=== PATIENT | male | born 1985 | race Caucasian/White ===

== ENCOUNTER 2022-05-31 16:11 | Emergency (ER) | payer MEDICAID, SELFPAY ==
--- NOTE | ~2022-05-31 | CT_ITS ---
EXAMINATION: CT ABDOMEN AND PELVIS WITHOUT CONTRAST CLINICAL INFORMATION: Right flank pain COMPARISON: None available. TECHNIQUE: Multidetector volumetric imaging was performed from the superior aspect of the liver through the pubic symphysis. Sagittal and coronal reformatted images were obtained on the technologist's workstation. This CT examination was performed using dose optimization techniques as appropriate, variously including the following: *Automated exposure control *Adjustment of mA and/or kV according to patient size (this includes techniques or standardized protocols for targeted exams where dose is matched to indication/reason for exam; i.e. extremities or head) *Use of iterative reconstruction technique DLP: 616 mGy-cm FINDINGS: LUNG BASES: The visualized lung bases are unremarkable. LIVER, GALLBLADDER, AND BILIARY TREE: Changes of diffuse hepatic steatosis. No focal lesion grossly. No biliary ductal dilatation. Sludge within the gallbladder lumen without acute inflammatory changes. PANCREAS: Unremarkable. SPLEEN: Mildly prominent 13.5 cm. ADRENAL GLANDS: Unremarkable. KIDNEYS AND URETERS: The kidneys are normal in size, shape, and attenuation. No hydronephrosis, hydroureter, or calculi seen. No perinephric stranding. BLADDER: Unremarkable. GASTROINTESTINAL TRACT: The small and large bowel are unremarkable. The appendix is unremarkable. ABDOMINAL WALL: No significant hernia is appreciated. LYMPH NODES: Normal. VASCULAR: Unremarkable. PELVIC VISCERA: Unremarkable. OSSEOUS STRUCTURES: Unremarkable. CT/CT abdomen pelvis wo IV con IMPRESSION: No stones or obstructive uropathy. Normal appendix. Incidental findings as above. Fleischner guidelines were followed.
[2022-05-31 16:36] VITALS: BP 144/92; PULSE 98; RESP 18; O2SAT 98; BMI 28.0
--- NOTE | 2022-05-31 16:36 | ED_ITS ---
HPI - General Adult General Chief complaint: Urogenital-Male <EDINSON Downs - Last Filed: 05/31/22 16:40> Stated complaint: lower back pain/ fever <EDINSON Downs - Last Filed: 05/31/22 16:40> Time Seen by Provider: 05/31/22 20:32 <EDINSON Downs - Last Filed: 05/31/22 16:40> Source: patient <Rozina Castillo MD - Last Filed: 06/01/22 00:22> Mode of arrival: ambulatory <Rozina Castillo MD - Last Filed: 06/01/22 00:22> History of Present Illness HPI narrative: 37-year-old male that denies any past medical history and denies any use of prescription medications presents for feeling unwell, with fatigue, fevers and chills as well as onset left lower quadrant/flank pain as well as sternal pain and denies any sore throat, ear pain, nausea, vomiting, diarrhea. Patient denies any illicit drug use, smokes weed on occasion and drinks alcohol socially, the last time was on Monday with 3 beers. He denies any recent travel outside of the [facility] or outside of the country. <Rozina Castillo MD - Last Filed: 06/01/22 00:22> Related Data Allergies/adverse reactions: Allergies Allergy/AdvReac Type Severity Reaction Status Date / Time No Known Allergies Allergy Unverified 11/07/19 18:50 <EDINSON Downs - Last Filed: 05/31/22 16:40> Review of Systems Review of Systems: Pertinent positives and negatives as stated in HPI <Rozina Castillo MD - Last Filed: 06/01/22 00:22> PMFSH Past Medical History Source: nursing notes reviewed <Rozina Castillo MD - Last Filed: 06/01/22 00:22> Social History Social History: Social History Advance Directives: No Advance Directives Information Provided: Yes <EDINSON Downs - Last Filed: 05/31/22 16:40> Physical Exam ED Vital Signs: Vital Signs - 24 hr 05/31/22 16:36 05/31/22 21:48 Temperature 98.3 F Pulse Rate 98 72 Respiratory Rate 18 18 Blood Pressure 144/92 H 115/64 Pulse Oximetry 98 95 Oxygen Delivery Method Room Air Room Air BMI result Body Mass Index 28.0 <EDINSON Downs - Last Filed: 05/31/22 16:40> Vital Signs - 24 hr 05/31/22 16:36 05/31/22 21:48 Temperature 98.3 F Pulse Rate 98 72 Respiratory Rate 18 18 Blood Pressure 144/92 H 115/64 Pulse Oximetry 98 95 Oxygen Delivery Method Room Air Room Air BMI result Body Mass Index 28.0 VITAL SIGNS: Reviewed. GENERAL: Well developed, well nourished, in no acute distress. HEAD: Normocephalic/atraumatic EYES: PERRLA, EOMI EARS: Ext canals without abnormality NOSE: Nares patent bilateral OROPHARYNX: no oral lesions noted, posterior pharynx clear NECK: Supple, no adenopathy LUNGS: Normal breath sounds. No adventitious sounds or accessory muscle use. SpO2<98> CARDIOVASCULAR: Regular rate and rhythm without noted murmurs ABDOMEN: Soft, non-tender, non-distended with bowel sounds. BACK: No midline vertebral tenderness, there is no pain on palpation a crossed left paraspinal in to left posterior abdomen. MUSCULOSKELETAL: No tenderness, deformities, or effusions noted on gross inspection. EXTREMITIES: No cyanosis, clubbing or edema. SKIN: Inspection of the skin reveals no rashes NEUROLOGIC: Alert and oriented x 4. Strength and sensation to light touch were grossly intact x 4. <Rozina Castillo MD - Last Filed: 06/01/22 00:22> Course Course Course Narrative: RME--37yo M w/no sig PMHx c/o L low back pain radiating to L foot and LLQ w/subj fever x3 days. Also reports urinary frequency. Denies incontinence or retention, N/V, dysuria/hematuria +L CVAT. abd soft nontender Labs, UA, CTAP ordered <EDINSON Downs - Last Filed: 05/31/22 16:40> Medical Decision Making Medical Decision Making MDM Narrative: 37-year-old male who states that his boss seem to have of viral infection, but patient states that his lower left flank area has been so painful that he has been unable to sleep at night and states that the lower sternal area is quite painful as well. He denies any previous episodes similar events, after review of all investigations at this point I have concerns regarding leukopenia/thrombocytopenia in an otherwise healthy male. Will pursue ESR, CRP, LDH, on review of CT scan of the abdomen/pelvis there is nothing identified for the bony structures. I reviewed all additional workup, there is no evidence of acute elevation of inflammatory markers again I have some concerns regarding the distribution of leukopenia. Patient was provided with combination analgesics and encouraged sick continue with this outpatient. He was also given a referral to follow-up with hematology/oncology by calling the office 1st thing in the morning. <Rozina Castillo MD - Last Filed: 06/01/22 00:22> Differential Diagnosis Please see the discussion above <Rozina Castillo MD - Last Filed: 06/01/22 00:22> Lab Data Please see the discussion above <Rozina Castillo MD - Last Filed: 06/01/22 00:22> Result Diagrams: 05/31/22 17:28 05/31/22 17:28 <EDINSON Downs - Last Filed: 05/31/22 16:40> Labs: Lab Results 05/31/22 05/31/22 05/31/22 Range/Units 17:28 17:28 17:28 WBC 2.4 L (4.8-10.8) X10*3/uL RBC 5.27 (4.60-5.80) X10*6/uL Hgb 15.0 (14.0-18.0) g/dl Hct 43.6 (42.0-52.0) % MCV 82.7 (80.0-98.0) fL MCH 28.5 (27.0-33.0) pg MCHC 34.4 (31.0-36.0) g/dl RDW 12.9 (11.0-16.0) % Plt Count 105 L (160-400) X10*3/uL MPV 8.3 L (9.4-12.4) fL Immature Gran % (Auto) 0.4 (0.0-0.4) % Neut % (Auto) 61.4 (45-73) % Lymph % (Auto) 25.2 (20-40) % [place] % (Auto) 12.6 H (2-11) % Eos % (Auto) 0.0 (0-4) % Baso % (Auto) 0.4 (0-2) % Lymph # (Auto) 0.6 L (1.2-4.9) X10*3/uL [place] # (Auto) 0.3 (0.1-1.2) X10*3/uL Eos # (Auto) 0.0 (0.0-0.4) X10*3/uL Baso # (Auto) 0.0 (0.0-0.2) X10*3/uL Abs Immat Gran (auto) 0.01 (0.00-0.03) X10*3/uL Absolute Neuts (auto) 1.5 L (2.0-8.3) x10*3/uL Absolute Nucleated RBC 0.000 (0.0-0.012) X10*3/uL Nucleated RBC % (auto) 0.0 (0.0-0.2) /100WBC ESR 9 (0-15) MM/HR Sodium 134 L (135-145) mmol/L Potassium 4.3 (3.3-5.1) mmol/L Chloride 99 (96-108) mmol/L Carbon Dioxide 23 (22-29) mmol/L Anion Gap 16 (12-20) BUN 10 (9-16) mg/dL Creatinine 1.31 (0.5-1.4) mg/dL Estim Creat Clear Calc 93.6 Estimated GFR > 60 Random Glucose 90 (60-115) mg/dL Calcium 9.0 (8.4-10.2) mg/dL Total Bilirubin 1.2 H (0.0-1.0) mg/dL Direct Bilirubin 0.4 (0.0-0.5) mg/dL AST 47 H (5-37) U/L ALT 49 H (0-40) U/L Alkaline Phosphatase 88 (39-117) U/L Lactate Dehydrogenase 233 (118-273) U/L C-Reactive Protein 0.47 (< or = 0.50) mg/dL Total Protein 7.4 (6.5-8.0) g/dL Albumin 5.0 (3.5-5.0) g/dL Lipase 24 (8-78) U/L Urine Color Urine Appearance Urine pH (5.0-9.0) Ur Specific [place] (1.005-1.025) Urine Protein (Neg-Trace) mg/dL Urine Glucose (UA) (Negative) mg/dL Urine Ketones (Negative) mg/dL Urine Blood (Negative) Urine Nitrite (Negative) Ur Leukocyte Esterase (Negative) Urine RBC (0-2) /HPF Urine WBC (0-5) /HPF Ur Squamous Epith Cells (0-2) /HPF Urine Bacteria (None Seen) Hyaline Casts (0-2) /LPF Urine Opiates Screen (Not Detect) Urine Fentanyl Screen (Not Detect) Ur Barbiturates Screen (Not Detect) Ur Phencyclidine Scrn (Not Detect) Ur Amphetamines Screen (Not Detect) U Benzodiazepines Scrn (Not Detect) Urine Cocaine Screen (Not Detect) U Marijuana (THC) Screen (Not Detect) Ethyl Alcohol < 10 mg/dL Influenza Type A (PCR) (Negative) Influenza Type B (PCR) (Negative) RSV RNA Qual (PCR) (Negative) SARS-CoV-2 RNA (RT-PCR) (Negative) 05/31/22 05/31/22 05/31/22 Range/Units 21:50 21:50 21:50 WBC (4.8-10.8) X10*3/uL RBC (4.60-5.80) X10*6/uL Hgb (14.0-18.0) g/dl Hct (42.0-52.0) % MCV (80.0-98.0) fL MCH (27.0-33.0) pg MCHC (31.0-36.0) g/dl RDW (11.0-16.0) % Plt Count (160-400) X10*3/uL MPV (9.4-12.4) fL Immature Gran % (Auto) (0.0-0.4) % Neut % (Auto) (45-73) % Lymph % (Auto) (20-40) % [place] % (Auto) (2-11) % Eos % (Auto) (0-4) % Baso % (Auto) (0-2) % Lymph # (Auto) (1.2-4.9) X10*3/uL [place] # (Auto) (0.1-1.2) X10*3/uL Eos # (Auto) (0.0-0.4) X10*3/uL Baso # (Auto) (0.0-0.2) X10*3/uL Abs Immat Gran (auto) (0.00-0.03) X10*3/uL Absolute Neuts (auto) (2.0-8.3) x10*3/uL Absolute Nucleated RBC (0.0-0.012) X10*3/uL Nucleated RBC % (auto) (0.0-0.2) /100WBC ESR (0-15) MM/HR Sodium (135-145) mmol/L Potassium (3.3-5.1) mmol/L Chloride (96-108) mmol/L Carbon Dioxide (22-29) mmol/L Anion Gap (12-20) BUN (9-16) mg/dL Creatinine (0.5-1.4) mg/dL Estim Creat Clear Calc Estimated GFR Random Glucose (60-115) mg/dL Calcium (8.4-10.2) mg/dL Total Bilirubin (0.0-1.0) mg/dL Direct Bilirubin (0.0-0.5) mg/dL AST (5-37) U/L ALT (0-40) U/L Alkaline Phosphatase (39-117) U/L Lactate Dehydrogenase (118-273) U/L C-Reactive Protein (< or = 0.50) mg/dL Total Protein (6.5-8.0) g/dL Albumin (3.5-5.0) g/dL Lipase (8-78) U/L Urine Color Yellow Urine Appearance Clear Urine pH 5.5 (5.0-9.0) Ur Specific [place] 1.010 (1.005-1.025) Urine Protein Negative (Neg-Trace) mg/dL Urine Glucose (UA) Negative (Negative) mg/dL Urine Ketones 15 (Negative) mg/dL Urine Blood Trace H (Negative) Urine Nitrite Negative (Negative) Ur Leukocyte Esterase Negative (Negative) Urine RBC 0-2 (0-2) /HPF Urine WBC 0-5 (0-5) /HPF Ur Squamous Epith Cells 0-2 (0-2) /HPF Urine Bacteria None Seen (None Seen) Hyaline Casts 0-2 (0-2) /LPF Urine Opiates Screen Not Detected (Not Detect) Urine Fentanyl Screen Not Detected (Not Detect) Ur Barbiturates Screen Not Detected (Not Detect) Ur Phencyclidine Scrn Not Detected (Not Detect) Ur Amphetamines Screen Not Detected (Not Detect) U Benzodiazepines Scrn Not Detected (Not Detect) Urine Cocaine Screen Not Detected (Not Detect) U Marijuana (THC) Screen POSITIVE H (Not Detect) Ethyl Alcohol mg/dL Influenza Type A (PCR) NEGATIVE (Negative) Influenza Type B (PCR) NEGATIVE (Negative) RSV RNA Qual (PCR) NEGATIVE (Negative) SARS-CoV-2 RNA (RT-PCR) NEGATIVE (Negative) <EDINSON Downs - Last Filed: 05/31/22 16:40> Lab Results 05/31/22 05/31/22 05/31/22 Range/Units 17:28 17:28 17:28 WBC 2.4 L (4.8-10.8) X10*3/uL RBC 5.27 (4.60-5.80) X10*6/uL Hgb 15.0 (14.0-18.0) g/dl Hct 43.6 (42.0-52.0) % MCV 82.7 (80.0-98.0) fL MCH 28.5 (27.0-33.0) pg MCHC 34.4 (31.0-36.0) g/dl RDW 12.9 (11.0-16.0) % Plt Count 105 L (160-400) X10*3/uL MPV 8.3 L (9.4-12.4) fL Immature Gran % (Auto) 0.4 (0.0-0.4) % Neut % (Auto) 61.4 (45-73) % Lymph % (Auto) 25.2 (20-40) % [place] % (Auto) 12.6 H (2-11) % Eos % (Auto) 0.0 (0-4) % Baso % (Auto) 0.4 (0-2) % Lymph # (Auto) 0.6 L (1.2-4.9) X10*3/uL [place] # (Auto) 0.3 (0.1-1.2) X10*3/uL Eos # (Auto) 0.0 (0.0-0.4) X10*3/uL Baso # (Auto) 0.0 (0.0-0.2) X10*3/uL Abs Immat Gran (auto) 0.01 (0.00-0.03) X10*3/uL Absolute Neuts (auto) 1.5 L (2.0-8.3) x10*3/uL Absolute Nucleated RBC 0.000 (0.0-0.012) X10*3/uL Nucleated RBC % (auto) 0.0 (0.0-0.2) /100WBC ESR 9 (0-15) MM/HR Sodium 134 L (135-145) mmol/L Potassium 4.3 (3.3-5.1) mmol/L Chloride 99 (96-108) mmol/L Carbon Dioxide 23 (22-29) mmol/L Anion Gap 16 (12-20) BUN 10 (9-16) mg/dL Creatinine 1.31 (0.5-1.4) mg/dL Estim Creat Clear Calc 93.6 Estimated GFR > 60 Random Glucose 90 (60-115) mg/dL Calcium 9.0 (8.4-10.2) mg/dL Total Bilirubin 1.2 H (0.0-1.0) mg/dL Direct Bilirubin 0.4 (0.0-0.5) mg/dL AST 47 H (5-37) U/L ALT 49 H (0-40) U/L Alkaline Phosphatase 88 (39-117) U/L Lactate Dehydrogenase 233 (118-273) U/L C-Reactive Protein 0.47 (< or = 0.50) mg/dL Total Protein 7.4 (6.5-8.0) g/dL Albumin 5.0 (3.5-5.0) g/dL Lipase 24 (8-78) U/L Urine Color Urine Appearance Urine pH (5.0-9.0) Ur Specific [place] (1.005-1.025) Urine Protein (Neg-Trace) mg/dL Urine Glucose (UA) (Negative) mg/dL Urine Ketones (Negative) mg/dL Urine Blood (Negative) Urine Nitrite (Negative) Ur Leukocyte Esterase (Negative) Urine RBC (0-2) /HPF Urine WBC (0-5) /HPF Ur Squamous Epith Cells (0-2) /HPF Urine Bacteria (None Seen) Hyaline Casts (0-2) /LPF Urine Opiates Screen (Not Detect) Urine Fentanyl Screen (Not Detect) Ur Barbiturates Screen (Not Detect) Ur Phencyclidine Scrn (Not Detect) Ur Amphetamines Screen (Not Detect) U Benzodiazepines Scrn (Not Detect) Urine Cocaine Screen (Not Detect) U Marijuana (THC) Screen (Not Detect) Ethyl Alcohol < 10 mg/dL Influenza Type A (PCR) (Negative) Influenza Type B (PCR) (Negative) RSV RNA Qual (PCR) (Negative) SARS-CoV-2 RNA (RT-PCR) (Negative) 05/31/22 05/31/22 05/31/22 Range/Units 21:50 21:50 21:50 WBC (4.8-10.8) X10*3/uL RBC (4.60-5.80) X10*6/uL Hgb (14.0-18.0) g/dl Hct (42.0-52.0) % MCV (80.0-98.0) fL MCH (27.0-33.0) pg MCHC (31.0-36.0) g/dl RDW (11.0-16.0) % Plt Count (160-400) X10*3/uL MPV (9.4-12.4) fL Immature Gran % (Auto) (0.0-0.4) % Neut % (Auto) (45-73) % Lymph % (Auto) (20-40) % [place] % (Auto) (2-11) % Eos % (Auto) (0-4) % Baso % (Auto) (0-2) % Lymph # (Auto) (1.2-4.9) X10*3/uL [place] # (Auto) (0.1-1.2) X10*3/uL Eos # (Auto) (0.0-0.4) X10*3/uL Baso # (Auto) (0.0-0.2) X10*3/uL Abs Immat Gran (auto) (0.00-0.03) X10*3/uL Absolute Neuts (auto) (2.0-8.3) x10*3/uL Absolute Nucleated RBC (0.0-0.012) X10*3/uL Nucleated RBC % (auto) (0.0-0.2) /100WBC ESR (0-15) MM/HR Sodium (135-145) mmol/L Potassium (3.3-5.1) mmol/L Chloride (96-108) mmol/L Carbon Dioxide (22-29) mmol/L Anion Gap (12-20) BUN (9-16) mg/dL Creatinine (0.5-1.4) mg/dL Estim Creat Clear Calc Estimated GFR Random Glucose (60-115) mg/dL Calcium (8.4-10.2) mg/dL Total Bilirubin (0.0-1.0) mg/dL Direct Bilirubin (0.0-0.5) mg/dL AST (5-37) U/L ALT (0-40) U/L Alkaline Phosphatase (39-117) U/L Lactate Dehydrogenase (118-273) U/L C-Reactive Protein (< or = 0.50) mg/dL Total Protein (6.5-8.0) g/dL Albumin (3.5-5.0) g/dL Lipase (8-78) U/L Urine Color Yellow Urine Appearance Clear Urine pH 5.5 (5.0-9.0) Ur Specific [place] 1.010 (1.005-1.025) Urine Protein Negative (Neg-Trace) mg/dL Urine Glucose (UA) Negative (Negative) mg/dL Urine Ketones 15 (Negative) mg/dL Urine Blood Trace H (Negative) Urine Nitrite Negative (Negative) Ur Leukocyte Esterase Negative (Negative) Urine RBC 0-2 (0-2) /HPF Urine WBC 0-5 (0-5) /HPF Ur Squamous Epith Cells 0-2 (0-2) /HPF Urine Bacteria None Seen (None Seen) Hyaline Casts 0-2 (0-2) /LPF Urine Opiates Screen Not Detected (Not Detect) Urine Fentanyl Screen Not Detected (Not Detect) Ur Barbiturates Screen Not Detected (Not Detect) Ur Phencyclidine Scrn Not Detected (Not Detect) Ur Amphetamines Screen Not Detected (Not Detect) U Benzodiazepines Scrn Not Detected (Not Detect) Urine Cocaine Screen Not Detected (Not Detect) U Marijuana (THC) Screen POSITIVE H (Not Detect) Ethyl Alcohol mg/dL Influenza Type A (PCR) NEGATIVE (Negative) Influenza Type B (PCR) NEGATIVE (Negative) RSV RNA Qual (PCR) NEGATIVE (Negative) SARS-CoV-2 RNA (RT-PCR) NEGATIVE (Negative) <Rozina Castillo MD - Last Filed: 06/01/22 00:22> Radiology Impression Radiologist Impression: My interpretation is in agreement with radiology's impression of the imaging studies. <Rozina Castillo MD - Last Filed: 06/01/22 00:22> Discharge Plan Discharge Clinical Impression: Viral syndrome, Leukopenia, Thrombocytopenia <EDINSON Downs - Last Filed: 05/31/22 16:40> Patient Disposition: Home, Self-Care <EDINSON Downs - Last Filed: 05/31/22 16:40> Instructions: Viral Syndrome (ED), Thrombocytopenia (ED) <EDINSON Downs - Last Filed: 05/31/22 16:40> Additional Instructions: 1. Please continue with [id number] Tylenol/ibuprofen for your pain, consider [id number] lidocaine patch for additional symptom relief in your back area. 2. Because of the findings on your lab work, I have provided you with a referral to follow-up with our parakeet raiser. You will need to call the office 1st thing in the morning to set up an appointment for re-evaluation. Return to the ER for any worsening of symptoms. <EDINSON Downs - Last Filed: 05/31/22 16:40> Referrals: Michelle Gonzalez MD [Primary Care Provider] - Brit James MD [Physician] - (37M sternal pain, viral-like symptoms, leukopenia as well as thrombocytopenia, LDH and inflammatory markers are unremarkable. Thank you for seeing this patient.) <EDINSON Downs - Last Filed: 05/31/22 16:40>
[2022-05-31 17:31] LABS: MANUAL DIFF FLAG NO
[2022-05-31 17:32] LABS: Basophils Percent Auto 0.4 % (0-2); Hematocrit 43.6 % (42.0-52.0); Imm Gran Abs Auto 0.01 X10*3/uL (0.00-0.03); Imm Gran Pct Auto 0.4 % (0.0-0.4); Lymphocytes Absolute Auto 0.6 X10*3/uL (1.2-4.9); Lymphocytes Percent Auto 25.2 % (20-40); Mean Corpuscular HGB Conc 34.4 g/dl (31.0-36.0); Mean Corpuscular Hemoglobin 28.5 pg (27.0-33.0); Mean Corpuscular Volume 82.7 fL (80.0-98.0); Mean Platelet Volume 8.3 fL (9.4-12.4); Monocytes Absolute Auto 0.3 X10*3/uL (0.1-1.2); Monocytes Percent Auto 12.6 % (2-11); Neutrophils Absolute Auto 1.5 x10*3/uL (2.0-8.3); Neutrophils Percent Auto 61.4 % (45-73); Platelet Count 105 X10*3/uL (160-400); Red Blood Count 5.27 X10*6/uL (4.60-5.80); Red Cell Distribution Width 12.9 % (11.0-16.0); SCAN SMEAR FLAG 1
[2022-05-31 17:55] LABS: Alanine Aminotransferase 49 U/L (0-40); Alkaline Phosphatase 88 U/L (39-117); Anion Gap 16 (12-20); Aspartate Amino Transferase 47 U/L (5-37); Bilirubin Direct 0.4 mg/dL (0.0-0.5); Bilirubin Total 1.2 mg/dL (0.0-1.0); Blood Urea Nitrogen 10 mg/dL (9-16); Carbon Dioxide 23 mmol/L (22-29); Chloride 99 mmol/L (96-108); Creatinine Clr Calc Pharmacy 93.6; Estimated Glomerular Filt Rate > 60; Glucose Random 90 mg/dL (60-115); Lipase 24 U/L (8-78); Potassium 4.3 mmol/L (3.3-5.1); Sodium 134 mmol/L (135-145); Total Protein 7.4 g/dL (6.5-8.0)
[2022-05-31 17:57] LABS: White Blood Count 2.4 X10*3/uL (4.8-10.8)
[2022-05-31 21:12] LABS: Ethanol < 10 mg/dL
[2022-05-31 21:48] VITALS: BP 115/64; PULSE 72; RESP 18; TEMP 36.8; O2SAT 95
[2022-05-31 22:03] LABS: Appearance Urine Clear; Color Urine Yellow; Glucose Urine UA Negative (Negative); Leukocyte Esterase Urine Negative (Negative); Nitrite Urine Negative (Negative); PH 5.5 (5.0-9.0); UMIC TRIGGER UACC YES; Urine Blood Trace (Negative); Urine Ketones 15 mg/dL (Negative); Urine Protein Negative (Neg-Trace)
[2022-05-31 22:19] LABS: Bacteria Urine None Seen (None Seen); Hyaline Casts Urine 0-2 /LPF (0-2); RBC Urine 0-2 /HPF (0-2); Squamous Epithelial Cell Urine 0-2 /HPF (0-2); WBC Urine 0-5 /HPF (0-5)
[2022-05-31 22:47] LABS: Influenza A PCR NEGATIVE (Negative); Influenza B PCR NEGATIVE (Negative); Resp Syncy Virus RNA Qual PCR NEGATIVE (Negative); SARS COV2 PCR INHOUSE NEGATIVE (Negative)
[2022-05-31 22:51] LABS: C Reactive Protein 0.47 mg/dL (< or = 0.50); Lactate Dehydrogenase 233 U/L (118-273)
[2022-05-31 23:15] LABS: Amphetamine Screen Urine Not Detected (Not Detect); Barbiturates, Urine Not Detected (Not Detect); Benzodiazepines Screen Urine Not Detected (Not Detect); Cannabinoid Screen Urine POSITIVE (Not Detect); Cocaine Screen Urine Not Detected (Not Detect); Fentanyl, urine Not Detected (Not Detect); Opiate Screen Urine Not Detected (Not Detect); Phencyclidine Screen Urine Not Detected (Not Detect)
[2022-05-31 23:26] LABS: Erythrocyte Sedimentation Rate 9 MM/HR (0-15)
[2022-06-01 00:42] VITALS: BP 117/71; PULSE 68; RESP 16; TEMP 36.8; O2SAT 95
[2022-06-01] MEDS: Acetaminophen 325 MG TABLET 975 MG PO (00:42)
[2022-06-01] MEDS: Ibuprofen 400 MG TABLET PO (00:42)
== END 2022-06-01 00:49 | disposition home or self-care (01) ==
PROVIDERS: Physician Assistant; Emergency Provider Student in an Organized Health Care Education/Training Program; PCP Internal Medicine
DX: B34.9 Viral infection, unspecified (principal); D69.6 Thrombocytopenia, unspecified; R10.9 Unspecified abdominal pain; M54.50 Low back pain, unspecified; Z20.822 Contact with and (suspected) exposure to COVID-19; Z20.828 Contact with and (suspected) exposure to other viral communicable diseases; Z79.899 Other long term (current) drug therapy
CPT/HCPCS: 0241U; 36415; 74176; 80048; 80076; 80307; 81001; 81003; 82077; 83615; 83690; 85025; 85652; 86140; 99283; 99284

== ENCOUNTER → 2022-07-04 14:07 | Outpatient (BNV) | payer MEDICAID, SELFPAY | PROVIDERS: PCP Internal Medicine; Visit Provider Internal Medicine Medical Oncology | DX: D69.6 Thrombocytopenia, unspecified (principal); D72.818 Other decreased white blood cell count | CPT/HCPCS: 99204; 99213 ==

== ENCOUNTER 2022-07-12 20:45 | Emergency (ER) | payer MEDICAID, SELFPAY ==
[2022-07-12 20:48] VITALS: BP 126/71; PULSE 80; RESP 18; TEMP 36.5; O2SAT 97; BMI 29.4
--- NOTE | 2022-07-12 20:50 | ED_ITS ---
HPI - General Adult General Chief complaint: GI Bleed Stated complaint: blood in stool Time Seen by Provider: 07/13/22 00:42 Source: patient Mode of arrival: ambulatory Limitations: no limitations History of Present Illness HPI narrative: Patient history of hemorrhoids with history of frequent bleeding lately been bleeding more than usual does not have constipation stool is brown no abdominal pain no fever chills no nausea vomiting blood is mostly bright red no clots Related Data Previous Rx's Medication Instructions Recorded docusate sodium 100 mg capsule 100 mg PO BID #14 caps 07/13/22 (Colace) hydrocortisone 1 %-pramoxine 1 % 1 appl TN BID PRN hemorrhoids #10 07/13/22 rectal foam (Proctofoam HC) grams Allergies Allergy/AdvReac Type Severity Reaction Status Date / Time No Known Allergies Allergy Unverified 07/04/22 14:30 Review of Systems Review of Systems: Yes all other systems are reviewed and are negative [facility] Family History Family History Paternal Grandfather Esophageal cancer Social History Social History Household Members: Significant Other and Children Patient Tobacco Use Status: Current everyday Tobacco user Tobacco use type: Cigarette Second Hand Smoke Exposure: No Substance Use Type: Marijuana service: No Current occupational status: employed Physical Exam ED Vital Signs: Vital Signs - 24 hr 07/12/22 20:48 07/12/22 23:45 Temperature 97.7 F 98.1 F Pulse Rate 80 78 Respiratory Rate 18 18 Blood Pressure 126/71 151/59 H Pulse Oximetry 97 98 Oxygen Delivery Method Room Air Room Air BMI result Body Mass Index 29.4 Appearance: Alert. Oriented X3. No acute distress. ENT: Pharynx normal. Oral Mucosa moist Neck: Normal inspection. Neck supple. CVS: Normal heart rate and rhythm. Pulses normal. Respiratory: No respiratory distress. Equal air entry bilateral, no wheezing/rales/rhonchi Abdomen: Soft and nontender. Bowel sounds are present, no mass palpable, no CVA tenderness rectum: Brown stool no blood on the finger palpable internal hemorrhoids Skin: Skin warm and dry. Normal skin color. Normal skin turgor. Extremities: No lower extremity edema. No calf tenderness Neuro: Oriented X 3. No motor deficit. Course Course Course Narrative: RME: 37yo M w/no sig PMHx c/o brbpr intermittently x1 year now with gushing blood and dark red blood in underwear x today. Admits to assoc lightheadedness. denies taking AC. denies rectal pain or abdominal pain at present Labs, UA, Occult stool ordered Full HPI, ROS and PE to be performed by primary ED provider. Medical Decision Making Medical Decision Making MDM Narrative: Patient with likely internal hemorrhoids with intermittent bleed stable H&H advised patient to use Proctofoam HC suppository twice daily and follow up with outpatient with surgeon Lab Data MDM Lab Attestation statement: I reviewed the patient's lab results. 07/12/22 21:33 07/12/22 21:33 Labs: Lab Results 07/12/22 07/12/22 Range/Units 21:33 21:33 WBC 4.9 (4.8-10.8) X10*3/uL RBC 4.37 L (4.60-5.80) X10*6/uL Hgb 12.5 L (14.0-18.0) g/dl Hct 37.0 L (42.0-52.0) % MCV 84.7 (80.0-98.0) fL MCH 28.6 (27.0-33.0) pg MCHC 33.8 (31.0-36.0) g/dl RDW 13.2 (11.0-16.0) % Plt Count 175 (160-400) X10*3/uL MPV 8.1 L (9.4-12.4) fL Immature Gran % (Auto) 0.4 (0.0-0.4) % Neut % (Auto) 60.1 (45-73) % Lymph % (Auto) 27.7 (20-40) % [place] % (Auto) 7.9 (2-11) % Eos % (Auto) 3.5 (0-4) % Baso % (Auto) 0.4 (0-2) % Lymph # (Auto) 1.4 (1.2-4.9) X10*3/uL [place] # (Auto) 0.4 (0.1-1.2) X10*3/uL Eos # (Auto) 0.2 (0.0-0.4) X10*3/uL Baso # (Auto) 0.0 (0.0-0.2) X10*3/uL Abs Immat Gran (auto) 0.02 (0.00-0.03) X10*3/uL Absolute Neuts (auto) 3.0 (2.0-8.3) x10*3/uL Absolute Nucleated RBC 0.000 (0.0-0.012) X10*3/uL Nucleated RBC % (auto) 0.0 (0.0-0.2) /100WBC Sodium 137 (135-145) mmol/L Potassium 3.9 (3.3-5.1) mmol/L Chloride 104 (96-108) mmol/L Carbon Dioxide 26 (22-29) mmol/L Anion Gap 11 L (12-20) BUN 10 (9-16) mg/dL Creatinine 1.15 (0.5-1.4) mg/dL Estim Creat Clear Calc 108.9 Estimated GFR > 60 Random Glucose 98 (60-115) mg/dL Calcium 9.3 (8.4-10.2) mg/dL Total Bilirubin 0.5 (0.0-1.0) mg/dL Direct Bilirubin 0.1 (0.0-0.5) mg/dL AST 17 (5-37) U/L ALT 20 (0-40) U/L Alkaline Phosphatase 65 (39-117) U/L Total Protein 6.6 (6.5-8.0) g/dL Albumin 4.5 (3.5-5.0) g/dL Lipase 27 (8-78) U/L Discharge Plan Discharge Clinical Impression: Internal bleeding hemorrhoids Patient Disposition: Home, Self-Care Instructions: Hemorrhoids (ED) Additional Instructions: Avoid straining or constipation Use suppositories as prescribed twice a day Follow-up with surgeon Prescriptions: New Proctofoam HC 1-1 % foam 1 appl TN BID PRN (Reason: hemorrhoids) Qty: 10 0RF docusate sodium [Colace] 100 mg capsule 100 mg PO BID Qty: 14 0RF Referrals: Mickey Coker MD [Physician] - 2 weeks
[2022-07-12 21:36] LABS: MANUAL DIFF FLAG NO
[2022-07-12 21:38] LABS: Basophils Percent Auto 0.4 % (0-2); Eosinophils Absolute Auto 0.2 X10*3/uL (0.0-0.4); Eosinophils Percent Auto 3.5 % (0-4); Hemoglobin 12.5 g/dl (14.0-18.0); Imm Gran Abs Auto 0.02 X10*3/uL (0.00-0.03); Imm Gran Pct Auto 0.4 % (0.0-0.4); Lymphocytes Absolute Auto 1.4 X10*3/uL (1.2-4.9); Lymphocytes Percent Auto 27.7 % (20-40); Mean Corpuscular HGB Conc 33.8 g/dl (31.0-36.0); Mean Corpuscular Hemoglobin 28.6 pg (27.0-33.0); Mean Corpuscular Volume 84.7 fL (80.0-98.0); Mean Platelet Volume 8.1 fL (9.4-12.4); Monocytes Absolute Auto 0.4 X10*3/uL (0.1-1.2); Monocytes Percent Auto 7.9 % (2-11); Neutrophils Percent Auto 60.1 % (45-73); Platelet Count 175 X10*3/uL (160-400); Red Blood Count 4.37 X10*6/uL (4.60-5.80); Red Cell Distribution Width 13.2 % (11.0-16.0); White Blood Count 4.9 X10*3/uL (4.8-10.8)
[2022-07-12 21:57] LABS: Alanine Aminotransferase 20 U/L (0-40); Albumin Level 4.5 g/dL (3.5-5.0); Alkaline Phosphatase 65 U/L (39-117); Anion Gap 11 (12-20); Aspartate Amino Transferase 17 U/L (5-37); Bilirubin Direct 0.1 mg/dL (0.0-0.5); Bilirubin Total 0.5 mg/dL (0.0-1.0); Blood Urea Nitrogen 10 mg/dL (9-16); Calcium 9.3 mg/dL (8.4-10.2); Carbon Dioxide 26 mmol/L (22-29); Chloride 104 mmol/L (96-108); Creatinine Clr Calc Pharmacy 108.9; Estimated Glomerular Filt Rate > 60; Glucose Random 98 mg/dL (60-115); Lipase 27 U/L (8-78); Potassium 3.9 mmol/L (3.3-5.1); Sodium 137 mmol/L (135-145); Total Protein 6.6 g/dL (6.5-8.0)
[2022-07-12 23:45] VITALS: BP 151/59; PULSE 78; RESP 18; TEMP 36.7; O2SAT 98
--- NOTE | 2022-07-12 23:50 | PC.NURSE ---
On reassessment, pt is awake, alert, and oriented X 4. Skin is warm, pink, and dry. Pt denies any new or changing discomfort or concerns since arriving at ED. No obvious distress noted.
[2022-07-13 02:18] VITALS: BP 113/62; PULSE 72; RESP 16; TEMP 36.9; O2SAT 99
== END 2022-07-13 02:18 | disposition home or self-care (01) ==
PROVIDERS: Physician Assistant; Emergency Provider Internal Medicine; PCP Internal Medicine
DX: K64.8 Other hemorrhoids (principal)
CPT/HCPCS: 36415; 80048; 80076; 83690; 85025; 99282; 99283

== ENCOUNTER → 2022-08-02 10:02 | Outpatient (BNVA) | payer MEDICAID, SELFPAY | PROVIDERS: PCP Internal Medicine; Referring Provider Internal Medicine; Visit Provider Surgery | DX: K64.9 Unspecified hemorrhoids (principal) | CPT/HCPCS: 99202 ==

== ENCOUNTER 2022-08-02 10:38 | Outpatient (REF) | payer MEDICAID, SELFPAY ==
[2022-08-02 13:10] LABS: MANUAL DIFF FLAG NO
[2022-08-02 13:12] LABS: Basophils Percent Auto 0.7 % (0-2); Eosinophils Absolute Auto 0.1 X10*3/uL (0.0-0.4); Eosinophils Percent Auto 3.1 % (0-4); Hematocrit 41.2 % (42.0-52.0); Hemoglobin 13.5 g/dl (14.0-18.0); Imm Gran Abs Auto 0.04 X10*3/uL (0.00-0.03); Imm Gran Pct Auto 0.9 % (0.0-0.4); Lymphocytes Percent Auto 22.7 % (20-40); Mean Corpuscular HGB Conc 32.8 g/dl (31.0-36.0); Mean Corpuscular Hemoglobin 28.5 pg (27.0-33.0); Mean Corpuscular Volume 86.9 fL (80.0-98.0); Mean Platelet Volume 8.6 fL (9.4-12.4); Monocytes Absolute Auto 0.3 X10*3/uL (0.1-1.2); Monocytes Percent Auto 5.9 % (2-11); Neutrophils Absolute Auto 3.1 x10*3/uL (2.0-8.3); Neutrophils Percent Auto 66.7 % (45-73); Platelet Count 207 X10*3/uL (160-400); Red Blood Count 4.74 X10*6/uL (4.60-5.80); Red Cell Distribution Width 13.2 % (11.0-16.0); White Blood Count 4.6 X10*3/uL (4.8-10.8)
[2022-08-02 13:37] LABS: Alanine Aminotransferase 69 U/L (0-40); Albumin Level 4.6 g/dL (3.5-5.0); Alkaline Phosphatase 68 U/L (39-117); Anion Gap 15 (12-20); Aspartate Amino Transferase 37 U/L (5-37); Bilirubin Total 0.4 mg/dL (0.0-1.0); Blood Urea Nitrogen 12 mg/dL (9-16); Calcium 9.6 mg/dL (8.4-10.2); Carbon Dioxide 26 mmol/L (22-29); Chloride 104 mmol/L (96-108); Cholesterol 249 mg/dL; Estimated Glomerular Filt Rate > 60; Glucose Random 88 mg/dL (60-115); HDL Cholesterol 51 mg/dL; LDL Cholesterol Calculated 177 mg/dl; Potassium 4.6 mmol/L (3.3-5.1); Sodium 140 mmol/L (135-145); Total Protein 7.1 g/dL (6.5-8.0); Triglycerides 106 mg/dL
[2022-08-03 07:53] LABS: HBS Num1 2.11 mIU/mL (0-7.99); HBc Num1 0.06 S/CO (0.00-0.79); HBsAGNum1 0.23 S/CO (0.00-0.99); Hepatitis A Antibody IgM 0.14 Index (0-0.79); Hepatitis B Core Antibody Nonreactive (Nonreactive); Hepatitis B Surface Antigen Negative (Negative); ~HepC Num1 0.05 S/CO (0.00-0.79); ~Hepatitis A Antibody IgM Nonreactive (Nonreactive); ~Hepatitis B Surface Antibody NONREACTIVE (Nonreactive); ~Hepatitis C Antibody Nonreactive (Nonreactive)
== END 2022-08-02 10:39 | disposition home or self-care (01) ==
LOC: HO.10HDL 10:38
PROVIDERS: Visit Provider Internal Medicine
DX: Z00.01 Encounter for general adult medical examination with abnormal findings (principal); K64.9 Unspecified hemorrhoids; D69.6 Thrombocytopenia, unspecified; D72.818 Other decreased white blood cell count; M51.16 Intervertebral disc disorders with radiculopathy, lumbar region; R31.29 Other microscopic hematuria; Z72.0 Tobacco use
CPT/HCPCS: 36415; 80053; 80061; 85025; 86704; 86706; 86709; 86803; 87340

== ENCOUNTER 2022-09-01 05:56 | Day surgery (SDC) | payer MEDICAID, SELFPAY ==
[2022-08-29 14:16] VITALS: BMI 29.8
[2022-09-01] MEDS: Lactated Ringers 1,000 ML 100 ML IVCONT (06:12)
[2022-09-01 06:22] VITALS: BP 120/63; PULSE 83; RESP 18; TEMP 36.6; O2SAT 96
--- NOTE | 2022-09-01 07:14 | HO.ANESPROP2 ---
HPI - Anesthesia Eval Consult details Narrative: Hemorerhoidectomy PMFSH Active Problems Active Problems: All Active Problems (Updated 08/29/22 @ 14:14 by Tegan Mora RN) Thrombocytopenia (Acute) Hemorrhoid (Acute) Past Medical History Medical History Hemorrhoids Thrombocytopenia Family History Family History Paternal Grandfather Esophageal cancer Family history of problems with anesthesia: No Surgical History Surgical History Surgical history unknown History of Problems with Anesthesia: No Social History Social History Household Members: Significant Other and Children Patient Tobacco Use Status: Current everyday Tobacco user Tobacco use type: Cigarette Smoked in Last 30 Days: Yes Patient Interested in Nicotine Replacement: No Second Hand Smoke Exposure: No Substance Use Type: Marijuana Substance Use Frequency: Daily Are you DNR?: No Advance Directives: No Advance Directives Information Provided: Yes Nutrition Risks: No Nutritional Risk service: No Current occupational status: employed Meds Allergies Allergy/AdvReac Type Severity Reaction Status Date / Time No Known Allergies Allergy Verified 09/01/22 06:23 Active Medications: Current Medications Lactated Ringer's (Lr) 1,000 mls @ 100 mls/hr IVCONT .Q10H REED Last Admin: 09/01/22 06:12 Dose: 100 mls/hr Exam Exam Date and Time: September 01, 2022 0714 Height,Weight and Vital Signs: Height 6 ft Weight 99.79 kg Last Vital Signs Temp 97.9 F 09/01/22 06:22 Pulse 83 09/01/22 06:22 Resp 18 09/01/22 06:22 BP 120/63 09/01/22 06:22 Pulse Ox 96 09/01/22 06:22 O2 Del Method Room Air 09/01/22 06:22 Airway Mallampati Class: II TM Dist: >3cm Neck ROM: Full Heart: rrr Lungs: cta Assessment and Plan Assessment Anesthesia Assessment: Anesthesia Plan Discussed and Chart Reviewed Final Anesthetic Review Family History of Problems with Anesthesia: No History of Problems with Anesthesia: No NPO: Yes ASA Class: II Patient Risk: Low Procedure Risk: Low Anesthetic Plan Anesthetic Plan: MAC: and Agree w/ Assess. and Plan Disposition: Standard PACU
--- NOTE | 2022-09-01 07:22 | PC.NURSE ---
dr. mathias aware that lcta, but occ. smoker cough noted. okay to proceed.
--- NOTE | 2022-09-01 07:27 | MHC.SHP ---
Pre-Procedural Eval Section A Date of Service: 09/01/22 The patient is an INPATIENT: No Changes since office visit: No Cold of Flu in the past 2 weeks, No New Medical Problems, No Changes in Medication and No Patient answered all questions The History & Physical has been completed within 30 days and I have reviewed it.: Yes Section B Chief Complaint: Unspecified hemorrhoids Allergies: Allergies Allergy/AdvReac Type Severity Reaction Status Date / Time No Known Allergies Allergy Verified 09/01/22 06:23 Plan I have reviewed the history and physical and performed a pertinent physical examination on my patient. No changes have occurred unless specified. Time Spent With Patient Time: Total time managing care of this patient today ____ minutes.
--- NOTE | 2022-09-01 07:57 | W.PM.OPN ---
Operative Note Operative Note Date of Service: 09/01/22 Narrative: Preoperative diagnosis: [] symptomatic internal and external hemorrhoids Postop diagnosis: [] same Procedure [] hemorrhoidectomy Surgeon: [] Siddharth Philosophy Specialist: [] Type of Anesthesia: [] mass Indication for surgery: [] symptomatic hemorrhoids. Patient very large internal-external hemorrhoids at the 3, 7, 11 o'clock position lithotomy. Findings: [] Patient brought to the operating room, placed on the operating room table in the supine position, and after adequate level of MAC anesthesia was induced, the Anorectal area and perineum was prepped and draped in usual sterile fashion. Each hemorrhoidal area was infiltrated with 1% lidocaine/ 0.5% Marcaine. Each was sequentially grasped and transected at their base with double firing of mini ligature device. Specimens sent to pathology. At completion the procedure, wounds irrigated, and secured hemostasis. Gelfoam impregnated with bupivacaine plug followed by dressing were placed. Sponge, needle, and instrument counts reported correct. Patient tolerated procedure well and emerged from anesthesia and stable condition. EBL minimal
[2022-09-01 08:04] VITALS: BP 114/47; PULSE 85; RESP 14; TEMP 36.3; O2SAT 97
[2022-09-01 08:09] VITALS: BP 114/55; PULSE 78; RESP 17; O2SAT 95
[2022-09-01 08:14] VITALS: BP 114/56; PULSE 116; RESP 18; O2SAT 98
[2022-09-01 08:19] VITALS: BP 126/73; PULSE 67; RESP 17; O2SAT 98
[2022-09-01 08:39] VITALS: BP 122/80; PULSE 60; RESP 17; TEMP 36.3; O2SAT 99
== END 2022-09-01 09:06 | disposition home or self-care (01) ==
PROVIDERS: PCP Internal Medicine; Visit Provider Surgery
PROC: (CPT 46260; principal; 2022-09-01 07:30)
DX: K64.8 Other hemorrhoids (principal); K64.4 Residual hemorrhoidal skin tags; D69.6 Thrombocytopenia, unspecified; F17.210 Nicotine dependence, cigarettes, uncomplicated
CPT/HCPCS: 46260; 88304; J0690; J1100; J2250; J2405; J3010

== ENCOUNTER → 2022-09-01 05:56 | Outpatient (BNV) | payer MEDICAID, SELFPAY | PROVIDERS: PCP Internal Medicine; Visit Provider Surgery | DX: K64.9 Unspecified hemorrhoids (principal) | CPT/HCPCS: 46946 ==

== ENCOUNTER 2022-09-09 08:58 | Outpatient (AMB) | payer MEDICAID, SELFPAY ==
[2022-09-09 09:04] VITALS: BP 144/73; PULSE 66; BMI 28.2
--- NOTE | 2022-09-09 09:04 | A.OFFVIS_ITS ---
Intake Vital Signs 09/09/22 09:04 Height 6 ft Weight 208 lb BMI 28.2 BP 144/73 H Blood Pressure Location Rt brachial Position Sitting Pulse 66 Intake Visit Reasons: S/P hemorrhoidectomy Intake Note: Patient here s/p hemorrhoidectomy. Patient reports pain and some bleeding. Luster Applicator Required: No Accompanied by: Self / Same As Patient Allergies No Known Allergies Allergy (Verified 09/09/22 09:06) HPI HPI Comments History of Present Illness Details Status post hemorrhoidectomy. Aside from incisional discomfort, which is improving, patient is doing well. He is tolerating a diet. He is having soft bowel movements. [facility] Medical History Hemorrhoids Thrombocytopenia Surgical History History of hemorrhoidectomy (09/01/22) Surgical history unknown Family History Paternal Grandfather Esophageal cancer Social History Household Members: Significant Other and Children Patient Tobacco Use Status: Current everyday Tobacco user Tobacco use type: Cigarette Second Hand Smoke Exposure: No Substance Use Type: Marijuana service: No Current occupational status: employed Physical Exam Vital Signs: Last Vital Signs Pulse 66 09/09/22 09:04 BP 144/73 H 09/09/22 09:04 BMI result Body Mass Index 28.2 GI Other: Hemorrhoidal wounds clean dry and intact, healing uneventfully. Assessment & Plan Assessment & Plan (1) Hemorrhoid: Code(s): K64.9 - Unspecified hemorrhoids Plan: Patient has been given local wound instructions, and will follow-up ER Coding Level of Care Code Global (48192) Diagnoses Hemorrhoid K64.9
== END 2022-09-09 09:21 | disposition home or self-care (01) ==
PROVIDERS: PCP Internal Medicine; Visit Provider Surgery
DX: K64.9 Unspecified hemorrhoids (principal)
CPT/HCPCS: 99024

== ENCOUNTER → 2022-09-09 08:58 | Outpatient (BNVA) | payer MEDICAID, SELFPAY | PROVIDERS: PCP Internal Medicine; Visit Provider Surgery ==

== ENCOUNTER 2023-02-27 09:15 | Day surgery (SDC) | payer BC, MEDICAID, SELFPAY ==
--- NOTE | 2023-02-24 10:49 | HO.ANESPROP2 ---
HPI - Anesthesia Eval Consult details Narrative: 38yo M for Colonoscopy s/p hemmorhoidectomy 08/2022 with MAC PMFSH Active Problems Active Problems: All Active Problems (Updated 09/11/22 @ 14:57 by Brit James MD) Thrombocytopenia (Acute) Hemorrhoid (Acute) Past Medical History Medical History Hemorrhoids Thrombocytopenia Family History Family History Paternal Grandfather Esophageal cancer Family history of problems with anesthesia: No Surgical History Surgical History History of hemorrhoidectomy (09/01/22) Surgical history unknown History of Problems with Anesthesia: No Social History Social History Household Members: Significant Other and Children Patient Tobacco Use Status: Current everyday Tobacco user Tobacco use type: Cigarette Second Hand Smoke Exposure: No Substance Use Type: Marijuana service: No Current occupational status: employed Meds Allergies Allergy/AdvReac Type Severity Reaction Status Date / Time No Known Allergies Allergy Verified 09/09/22 09:06 Exam Pertinent Lab Results Pertinent Lab Results: Laboratory Tests 09/05/22 14:01 WBC 5.2 Hgb 13.9 L Hct 41.2 L Plt Count 201 Sodium 138 Potassium 4.0 Chloride 104 Carbon Dioxide 25 BUN 12 Creatinine 1.01 Assessment and Plan Assessment Anesthesia Assessment: Chart Reviewed Final Anesthetic Review Family History of Problems with Anesthesia: No History of Problems with Anesthesia: No
[2023-02-27 10:37] VITALS: BMI 28.5
[2023-02-27 10:39] VITALS: BP 114/67; PULSE 55; RESP 16; TEMP 37.1; O2SAT 98
--- NOTE | 2023-02-27 10:43 | HO.ANESPROP2 ---
[facility] Active Problems Active Problems: All Active Problems (Updated 09/11/22 @ 14:57 by Brit James MD) Thrombocytopenia (Acute) Hemorrhoid (Acute) Past Medical History Medical History Thrombocytopenia Hemorrhoids Family History Family History Paternal Grandfather Esophageal cancer Family history of problems with anesthesia: No Surgical History Surgical History History of hemorrhoidectomy (09/01/22) Surgical history unknown History of Problems with Anesthesia: No Social History Social History Household Members: Significant Other and Children Patient Tobacco Use Status: Current everyday Tobacco user Tobacco use type: Cigarette Cigarette Packs Per Day: 0.5 Cigarettes Per Day: 10.0 Smoked in Last 30 Days: Yes Second Hand Smoke Exposure: No Use of substances other than those prescribed or required for medical reasons: Yes Substance Use Type: Marijuana Are you DNR?: No Advance Directives: No Advance Directives Information Provided: Yes service: No Current occupational status: employed Meds Allergies Allergy/AdvReac Type Severity Reaction Status Date / Time No Known Allergies Allergy Verified 09/09/22 09:06 Active Medications: Current Medications Lactated Ringer's (Lr) 1,000 mls @ 100 mls/hr IVCONT .Q10H REED Sodium Biphosphate/Sodium Phosphate (Sodium Phosphate,Steuben-Dibasic 133 Ml Enema) 133 ml NE ONCE PRN PRN Reason: Poor Colonoscopy Prep Results Exam Height,Weight and Vital Signs: Height 6 ft Weight 95.311 kg Airway Mallampati Class: II TM Dist: >3cm Neck ROM: Full Heart: RRR Lungs: CTA Assessment and Plan Assessment Anesthesia Assessment: Anesthesia Plan Discussed and Smoking Cess. Discussed Final Anesthetic Review Family History of Problems with Anesthesia: No History of Problems with Anesthesia: No NPO: Yes ASA Class: II Final Preanesthetic Review: Meds/Allgs Chart Reviewed, Consent Obtained/Reviewed and Anes Risks/Benef Reviewed Patient Risk: Low Procedure Risk: Low Anesthetic Plan Anesthetic Plan: MAC: Disposition: Standard PACU
--- NOTE | 2023-02-27 12:23 | PM.OP ---
Brief Operative Note Date of Service: 02/27/23 Pre-op diagnosis: Rectal bleeding Post-op diagnosis: other (Internal hemorrhoids) Procedure: Colonoscopy to the cecum and TI Surgeon: Romario Salvador MD Anesthesia: MAC Was an Marble Carver used for this Procedure?: No Estimated blood loss (mL): 0 Pathology: none sent Condition: stable Disposition: PACU
[2023-02-27 12:25] VITALS: BP 100/50; PULSE 62; RESP 16; TEMP 36.5; O2SAT 97
[2023-02-27 12:44] VITALS: BP 108/61; PULSE 51; RESP 18; TEMP 36.5; O2SAT 100
--- NOTE | 2023-02-27 12:47 | OP_ITS ---
DATE OF SERVICE: 02/27/2023 SURGEON: Romario Salvador MD INDICATIONS: The patient presents for evaluation of intermittent hematochezia. Full consent has been obtained from him for this, including risks of bleeding and perforation. PREOPERATIVE DIAGNOSIS: Hematochezia. POSTOPERATIVE DIAGNOSIS: PROCEDURE PERFORMED: Colonoscopy to the cecum and terminal ileum. ESTIMATED BLOOD LOSS: COMPLICATIONS: ANESTHESIA: Monitored anesthesia care. ASSISTANTS: SPECIMENS: POSTOPERATIVE DIAGNOSES: Hematochezia, internal hemorrhoids. DESCRIPTION OF PROCEDURE: The patient was placed in the left lateral decubitus position. The digital rectal exam revealed no abnormalities. The Olympus video pediatric colonoscope was entered into the rectum and advanced easily to the cecum. Once in the cecum, I did identify normal-appearing cecal pouch with appendiceal orifice and a normal-appearing ileocecal valve. The terminal ileum was cannulated and appeared normal. Scope withdrawn back in the colon. The entire cecum and ileocecal valve appeared normal. The scope was slowly withdrawn assessing all mucosal surfaces carefully. Preparation was excellent. I did not visualize any sign of polyps, colitis, nor angiodysplasia. In the rectum, scope was retroflexed visualizing small internal hemorrhoids, but no other pathology. The rectal mucosa appeared normal. Scope was straightened and withdrawn from the patient. He tolerated the procedure well and was returned to the recovery area in stable condition. IMPRESSION: Internal hemorrhoids. PLAN: Given today's negative exam, I would recommend a followup coloscopy in 10 years for further screening. At this point, he says he has not had any recent bleeding. He can use p.r.n. medications such as Anusol or preparation-H suppositories on a p.r.n. basis for the internal hemorrhoids if they do become symptomatic. This has been discussed with his . He will otherwise see me on a p.r.n. basis. Romario Salvador MD RMArina/STEVEL / [phone]
== END 2023-02-27 13:05 | disposition home or self-care (01) ==
PROVIDERS: PCP Internal Medicine; Visit Provider Internal Medicine
PROC: 0DJD8ZZ Inspection of Lower Intestinal Tract, Via Natural or Artificial Opening Endoscopic (ICD-10-PCS; CPT 45378; principal; 2023-02-27 10:50)
DX: K62.5 Hemorrhage of anus and rectum (principal); K64.8 Other hemorrhoids; R31.29 Other microscopic hematuria; Z98.890 Other specified postprocedural states; Z86.19 Personal history of other infectious and parasitic diseases; F17.210 Nicotine dependence, cigarettes, uncomplicated
CPT/HCPCS: 45378; J2704

== ENCOUNTER 2023-10-18 07:04 | Outpatient (REF) | payer BC, SELFPAY ==
[2023-10-18 07:18] LABS: MANUAL DIFF FLAG NO
[2023-10-18 08:45] LABS: Basophils Percent Auto 0.6 % (0-2); Eosinophils Absolute Auto 0.3 X10*3/uL (0.0-0.4); Eosinophils Percent Auto 4.8 % (0-4); Hematocrit 39.1 % (42.0-52.0); Imm Gran Abs Auto 0.01 X10*3/uL (0.00-0.03); Imm Gran Pct Auto 0.2 % (0.0-0.4); Lymphocytes Percent Auto 19.2 % (20-40); Mean Corpuscular HGB Conc 33.2 g/dl (31.0-36.0); Mean Corpuscular Hemoglobin 28.8 pg (27.0-33.0); Mean Corpuscular Volume 86.5 fL (80.0-98.0); Mean Platelet Volume 8.8 fL (9.4-12.4); Monocytes Absolute Auto 0.4 X10*3/uL (0.1-1.2); Monocytes Percent Auto 6.7 % (2-11); Neutrophils Absolute Auto 3.6 x10*3/uL (2.0-8.3); Neutrophils Percent Auto 68.5 % (45-73); Platelet Count 207 X10*3/uL (160-400); Red Blood Count 4.52 X10*6/uL (4.60-5.80); Red Cell Distribution Width 13.2 % (11.0-16.0); White Blood Count 5.2 X10*3/uL (4.8-10.8)
[2023-10-18 09:14] LABS: Alanine Aminotransferase 23 U/L (0-40); Albumin Level 4.6 g/dL (3.5-5.0); Alkaline Phosphatase 93 U/L (39-117); Anion Gap 9 (12-20); Aspartate Amino Transferase 31 U/L (5-37); Bilirubin Total 0.4 mg/dL (0.0-1.0); Blood Urea Nitrogen 11 mg/dL (9-16); Calcium 9.2 mg/dL (8.4-10.2); Carbon Dioxide 29 mmol/L (22-29); Chloride 106 mmol/L (96-108); Cholesterol 165 mg/dL (<200); Estimated Glomerular Filt Rate > 60; Glucose Random 85 mg/dL (60-115); HDL Cholesterol 43 mg/dL (>40); LDL Cholesterol Calculated 102 mg/dL (<100); Potassium 4.2 mmol/L (3.3-5.1); Sodium 140 mmol/L (135-145); Total Protein 6.8 g/dL (6.5-8.0); Triglycerides 102 mg/dL (<150)
== END 2023-10-18 07:05 | disposition home or self-care (01) ==
LOC: HO.LAB 07:04
PROVIDERS: PCP Internal Medicine; Visit Provider Internal Medicine
DX: Z00.00 Encounter for general adult medical examination without abnormal findings (principal); D69.6 Thrombocytopenia, unspecified; E78.00 Pure hypercholesterolemia, unspecified; R74.01 Elevation of levels of liver transaminase levels; Z72.0 Tobacco use
CPT/HCPCS: 36415; 80053; 80061; 85025

== ENCOUNTER 2024-09-05 14:50 | Outpatient (AMB) | payer BC, SELFPAY ==
--- NOTE | 2024-09-05 14:59 | A.OFFVIS_ITS ---
Intake Visit Reasons: microscopic hematuria Intake Note: New patient presents today for initial visit for microscopic hematuria Urology Medication:None Blood Thinner:None Antibiotic Allergies:None Allergies No Known Allergies Allergy (Verified 09/05/24 15:02) Medication List - Last Reconciled 09/05/24 by Radha Cannon MD hydrocortisone-pramoxine 1-1 % (Proctofoam HC) 1 appl NC BID PRN HPI Comments Details: Errol is a 39-year-old male here as a new patient for hematuria. He is here with his Yessica. urinalysis today 3+ blood leukocytes negative. Comorbidity nicotine use. I have discussed reasons for blood in the urine may include but are not limited to kidney stones, cancer in the urinary tract, BPH, or inflammatory conditions of the urinary tract. I have discussed workup to include cystoscopy evaluation. History of Present Illness - The patient is a 39-year-old male presenting with hematuria. 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 - The patient has not experienced visible blood in the urine at home. - There is no history of urinary tract infections or kidney stones reported. - There is a history of nicotine use, which is a known risk factor for urinary tract malignancies. Plan--CT urogram, urine for cytology, follow-up office cystoscopy [facility] Medical History Thrombocytopenia Hemorrhoids Surgical History History of hemorrhoidectomy (09/01/22) Surgical history unknown Family History Paternal Grandfather Esophageal cancer Social History Household Members: Significant Other and Children Patient Tobacco Use Status: Current everyday Tobacco user Tobacco use type: Cigarette Cigarette Packs Per Day: 0.5 Cigarettes Per Day: 10.0 Second Hand Smoke Exposure: No Substance Use Type: Marijuana service: No Current occupational status: employed Review of Systems Const All systems reviewed & are unremarkable except as noted in HPI and below Reports no additional complaints Eyes Reports no additional complaints ENT Reports no additional complaints Card Reports no additional complaints Resp Reports no additional complaints GI Reports no additional complaints Reports as per HPI Musc Reports no additional complaints Skin/Breast Reports system reviewed and no additional complaints, except as documented Neuro Reports no additional complaints Psych Reports no additional complaints Endo Reports no additional complaints Jamaal/Lymph Reports no additional complaints Aller/Immun Reports no additional complaints Physical Exam Const General: healthy appearing, no acute distress and well developed Orientation/consciousness: patient oriented x3 HEENT Head: Yes normocephalic and Yes atraumatic Eyes Conjunctivae: conjunctivae normal Neck Neck: Yes normal visual inspection Chest Chest palpation & inspection: normal inspection of the chest Resp Effort & Inspection: normal respiratory effort Cardio Rate: regular rate GI Inspection: Yes normal to inspection Neuro General: patient oriented x3 Psych Appearance: grossly normal Affect: normal affect Assessment & Plan Assessment & Plan (1) Hematuria: Code(s): R31.9 - Hematuria, unspecified Category: Medical (2) Nicotine dependence: Code(s): F17.200 - Nicotine dependence, unspecified, uncomplicated Category: Medical Plan Plan--CT urogram, urine for cytology, follow-up office cystoscopy Orders: Orders Blood Urea Nitrogen Today F17.200 - Nicotine dependence, unspecified, uncomplicated, R31.9 - Hematuria, unspecified CT urogram Today F17.200 - Nicotine dependence, unspecified, uncomplicated, R31.9 - Hematuria, unspecified Creatinine Today F17.200 - Nicotine dependence, unspecified, uncomplicated, R31.9 - Hematuria, unspecified Medications: Discontinued docusate sodium (Colace) Discontinued Reason: Patient Completed Course 100 mg PO BID 14 caps 0RF hydrocodone-acetaminophen 5-325 mg Partial Fill upon patient request. Discontinued Reason: Order 1 tab PO Q4-6H PRN 60 tabs 0RF pain Patient Instructions: The patient had an opportunity to ask questions regarding treatment plan. The patient expressed understanding and agreement with the above treatment plan. The patient is aware they should contact our office by phone for worsening of their current condition or the appearance of new symptoms. Compliance is encouraged with any medications and followup testing that is ordered. It is a privilege to be allowed the opportunity to participate in the urologic care of your patient. If you have any questions or concerns regarding treatment for the above conditions please do not hesitate to contact me. The office telephone contact is [phone]. This note is constructed in part using voice recognition software. While every effort has been made to ensure accuracy canal driver errors may have been included. Yours sincerely, Radha Cannon MD Scribe Plan - Not visible on output: Patient was informed and verbally consented to the use of an ambient scribe for clinic note documentation during this visit. Coding Level of Care Code New Pt Level 4 (42692) Diagnoses Hematuria R31.9 Nicotine dependence F17.200
== END 2024-09-05 15:35 | disposition home or self-care (01) ==
LOC: HO.HUSH 14:51
PROVIDERS: PCP Internal Medicine; Visit Provider Urology
DX: R31.9 Hematuria, unspecified (principal); F17.200 Nicotine dependence, unspecified, uncomplicated; Z13.9 Encounter for screening, unspecified
CPT/HCPCS: 99204

== ENCOUNTER 2024-09-05 14:50 | Outpatient (REF) | payer BC, SELFPAY ==
--- OUTSIDE RECORDS SUMMARY | 2024-09-05 16:12 | XMS_ITS | Data Portability ---
Author Organization [place] - [facility], [address] Address [address] [place] [address] Assessment No assessment recorded. Plan of Treatment Reminders Order Date Submit Date Provider Last Modified By Organization Details Last Modified Time Details Appointments None record ed. Lab None record ed. Referral None record ed. Procedures None record ed. Surgeries None record ed. Imaging None record ed. Medication Orders None record ed. Patient TargetsNo targets recorded. Patient InstructionsNo instructions recorded. Reason for Referral None Reported. Procedures Surgical History Date Name Laterality Status Provider Name and Address Organization Details Recorded Time 3 [facility] completed IRIS COUVERTIER [place] - [facility] 07/06/2022 08:56:47 Imaging Results None recorded. Procedure Notes None recorded. Medical Equipment None Reported. Vitals None Recorded Social History None recorded. Functional Status None recorded. Mental Status None recorded. Family History Nothing Reported. Medical History No medical history recorded. Past Encounters Encounter ID Performer Location Encounter Start Date Encounter Closed Date Diagnosis/Indication Diagnosis SNOMED-CT Code Diagnosis ICD10 Code Diagnosis Note [id number] [facility] [address] [place] [phone] 05/15/2017 16:59:01 05/15/2017 17:45:57 [id number] [address] [place] [phone] 0 05/20/2017 12:53:03 05/20/2017 13:39:46 [id number] [facility] [address] [place] [phone] 04/10/2019 10:40:08 04/10/2019 11:13:59 [id number] [address] [place] [address] 06/02/2019 10:10:00 06/02/2019 10:52:30 [id number] Wilma Barajas MD [address] [place] [address] 07/06/2022 08:50:02 07/06/2022 10:02:05 Unit Leader license medical examination [id number] Z02.4 Physical examination 588 0005 Z02.4 Health Concerns Section Related Observation LastModified by Organization Detai ls LastModified Time None Recorded Concern Status LastModified by Organization Details LastModified Time None Recorded Advance Directives Directive None Recorded Payers Insurance Date Sequence Insurance Name Policy Number Policy Arita Covered Member ID Arita Member ID Guarantor Name 07/06/2022 1 [facility] (O) [id number] Errol Bailey [id number] Errol Bailey 07/06/2022 OC-PAY AT TIME OF SERVICE 2022 Errol Bailey PAY AT TIME OF SERVICE 20 PAY AT TIME OF SERVICE 20 Errol Bailey 07/06/2022 PAY AT TOS Errol Bailey PAY AT TIME OF SERVICE 20 PAY AT TIME OF SERVICE 20 Errol Bailey
[2024-09-05 17:30] LABS: Blood Urea Nitrogen 16 mg/dL (9-16); Estimated Glomerular Filt Rate > 60
== END 2024-09-05 14:51 | disposition home or self-care (01) ==
LOC: HO.LAB 14:50
PROVIDERS: PCP Internal Medicine; Visit Provider Urology
DX: R31.9 Hematuria, unspecified (principal); F17.210 Nicotine dependence, cigarettes, uncomplicated; Z13.89 Encounter for screening for other disorder
CPT/HCPCS: 36415; 81003; 82565; 84520; 88112

== ENCOUNTER 2024-10-31 15:47 | Outpatient (REF) | payer BC, SELFPAY ==
--- NOTE | ~2024-10-31 | CT_ITS ---
EXAMINATION: CT ABDOMEN AND PELVIS WITHOUT AND WITH CONTRAST CLINICAL INFORMATION: R31.9 - Hematuria, unspecified COMPARISON: May 31, 2022 TECHNIQUE: Noncontrast CT of the abdomen and pelvis is performed followed by split bolus contrast-enhanced images using 85 mL Omnipaque 350 contrast. Postcontrast imaging is performed during the combined nephrogram and excretion phase. Sagittal and coronal reformatted images were obtained on the technologist's workstation for both the precontrast and postcontrast phases. This CT examination was performed using dose optimization techniques as appropriate, variously including the following: *Automated exposure control *Adjustment of mA and/or kV according to patient size (this includes techniques or standardized protocols for targeted exams where dose is matched to indication/reason for exam; i.e. extremities or head) *Use of iterative reconstruction technique DLP: 1540 mGy*cm FINDINGS: LUNG BASES: The visualized lung bases are unremarkable. LIVER, GALLBLADDER, AND BILIARY TREE: The liver is normal in size, shape, and attenuation. No focal hepatic lesion or biliary ductal dilatation is present. The gallbladder is unremarkable with no evidence of radiopaque gallstones, gallbladder wall thickening, or obvious pericholecystic inflammatory changes. PANCREAS: Unremarkable. SPLEEN: Unremarkable. ADRENAL GLANDS: Unremarkable. KIDNEYS AND URETERS: Punctate 1 mm calcification is present in the lower pole right kidney likely representing a small stone. There is no hydronephrosis. There is symmetric concentration and excretion of contrast from both kidneys. BLADDER: It is mostly decompressed but grossly unremarkable. GASTROINTESTINAL TRACT: The small and large bowel are unremarkable. The appendix is unremarkable. ABDOMINAL WALL: No significant hernia is appreciated. LYMPH NODES: Shotty right inguinal nodes are present. Likely reactive or hyperplastic. VASCULAR: Unremarkable. PELVIC VISCERA: Unremarkable. OSSEUS STRUCTURES: Unremarkable. CT/CT urogram IMPRESSION: Nonobstructing 1 mm stone is present in the lower pole right kidney. Otherwise, unremarkable urogram. Electronically signed by: Graham Orta MD 10/31/2024 05:22 PM EDT
[2024-10-31] MEDS: iohexoL 350 MG/ML 100 ML INFUS..BTL IV (17:10)
--- OUTSIDE RECORDS SUMMARY | 2024-10-31 18:49 | XMS_ITS | Patient Health Record ---
Author Organization [place] [facility] Address [address] [place] [address] Care Team Providers Care Diesel Engine Fitter Name Role Phone Michelle Gonzalez Primary Care Provider UnavailRomario Downing Unavailable [phone] Allergies No Known Allergies Reason For Referral No Information Medications Medication SIG (Take, Route, Frequency, Duration) Notes Start Date End Date Status Dulcolax (colon prep) 5 MG take at 3:00 p.m and 7:00p.m. Orally two tablets twice a day for one day for 1 day 12/27/2022 Active MiraLax (colon prep) 17 GM/SCOOP 1 238Gm bottle mixed with Gatorade or Crystal Light Orally begin at 5:00 p.m. the day before the procedure for 1 day 12/27/2022 Active Social History Tobacco Use: Social History Observation Description Date Details (start date - stop date) Current Smoker NA - NA Tobacco Use/Smoking Question Answer Notes Patient is a current smoker How often do you smoke cigarettes? every day How many cigarettes a day do you smoke? -30 Alcohol Screen Question Answer Notes Did you have a drink contain ing alcohol in the past year? Yes How often did you have a dri nk containing alcohol in the past year? Monthly or less (1 point) How many drinks did you have on a typical day when you were drinking in the past year? 1 or 2 drinks (0 point) How often did you have 6 or more drinks on one occasion in the past year? Never (0 point) Points 1 Interpretation Negative Section Notes: 1 1/2 packs every 2 days; no sig alcohol Problems Problem Type SNOMED Code ICD Code Onset Dates Problem Status W/U Status Risk Notes Problem [id number] Rectal bleeding (K62.5) Active confirmed Plan Of Treatment Future Test Test Name Order Date COLONOSCOPY 12/27/2022 Insurance Providers Payer Name Payer Address Payer Phone Subscriber Number Group Number Insured Name Patient Relationship to Insured Coverage Start Date Coverage End Date [place] [address] [place] [phone] [id number] ROSALINA DELVALLE Self - patient is the insured Medical (General) History Medical History History ICD Code Denies MO,DM,CVA,Lung disease,renal dise ase Shingles Microscopic hematuria for wh ich he reports he will be seeing a urologist as scheduled by his PCP Surgical History Surgery Date(Month/Year) Hemorrhoidectomy--Dr. Messina 09/01/2022
== END 2024-10-31 15:48 | disposition home or self-care (01) ==
LOC: HO.CT 15:47
PROVIDERS: PCP Internal Medicine; Visit Provider Urology
DX: R31.9 Hematuria, unspecified (principal); F17.200 Nicotine dependence, unspecified, uncomplicated
CPT/HCPCS: 74178; Q9967

== ENCOUNTER → 2024-10-31 15:50 | Outpatient (BNV) | payer BC, SELFPAY | PROVIDERS: PCP Internal Medicine; Visit Provider Radiology Diagnostic Radiology | DX: R31.9 Hematuria, unspecified (principal) | CPT/HCPCS: 74178 ==

== ENCOUNTER 2024-11-14 14:20 | Outpatient (AMB) | payer BC, SELFPAY ==
--- NOTE | 2024-11-14 14:36 | A.OFFVIS_ITS ---
Intake Visit Reasons: Cysto/CT Intake Note: Patient presents today for a cystoscopy/CT * Urogram CT 10/31 Urology Medication:None Blood Thinner:None Antibiotic Allergies:None Lot #:[id number] Exp:07/30/24 Allergies No Known Allergies Allergy (Verified 11/14/24 14:37) Medication List - Last Reconciled 11/14/24 by Radha Cannon MD hydrocortisone-pramoxine 1-1 % (Proctofoam HC) 1 appl [place] BID PRN HPI Comments Details: 11/14/24--Errol is here for office cystoscopy is being evaluated due to microscopic hematuria. Comorbidity nicotine use. He had CT urogram and urine sent for cytology. Cystoscopy findings: prostatic urethra non obstructive, bulbous urethra WNL, no suspicious bladder lesions visualized. History of Present Illness The patient is a 39-year-old male presenting with microscopic hematuria. The hematuria was identified during routine evaluation, and The patient has a history of nicotine use, which is a noted comorbidity in his medical history. 30 minutes spent in review of records pertaining to this visit and including uamd-co-eckz discussion with the patient and documentation of this visit. Results - CT Urogram (10/31/24): Possible 1 mm stone in the lower pole of the right kidney, no concerning masses - Urine cytology (09/05): Negative for malignant cells - UA--proteinuria -Cystoscopy findings: prostatic urethra non obstructive, bulbous urethra WNL, no suspicious bladder lesions visualized Plan 1. Microscopic Hematuria -REID negative for malignancy at this time 2. Possible Nephrolithiasis - Monitor for symptoms of renal colic or stone passage. - Consider follow-up imaging if symptoms develop. 3. Nicotine Use -Discussed the importance of smoking cessation and its benefits on overall health. 4. Proteinuria. Referral to Nephrology 09/05/24--Errol is a 39-year-old male here as a new patient for hematuria. He is here with his Yessica. urinalysis today 3+ blood leukocytes negative. Comorbidity nicotine use. I have discussed reasons for blood in the urine may include but are not limited to kidney stones, cancer in the urinary tract, BPH, or inflammatory conditions of the urinary tract. I have discussed workup to include cystoscopy evaluation. History of Present Illness - The patient is a 39-year-old male presenting with hematuria. 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 - The patient has not experienced visible blood in the urine at home. - There is no history of urinary tract infections or kidney stones reported. - There is a history of nicotine use, which is a known risk factor for urinary tract malignancies. Plan--CT urogram, urine for cytology, follow-up office cystoscopy [facility] Medical History Thrombocytopenia Hemorrhoids Surgical History History of hemorrhoidectomy (09/01/22) Surgical history unknown Family History Paternal Grandfather Esophageal cancer Social History Household Members: Significant Other and Children Patient Tobacco Use Status: Current everyday Tobacco user Tobacco use type: Cigarette Cigarette Packs Per Day: 0.5 Cigarettes Per Day: 10.0 Second Hand Smoke Exposure: No Substance Use Type: Marijuana service: No Current occupational status: employed Review of Systems Const All systems reviewed & are unremarkable except as noted in HPI and below Reports no additional complaints Eyes Reports no additional complaints ENT Reports no additional complaints Card Reports no additional complaints Resp Reports no additional complaints GI Reports no additional complaints Reports as per HPI Musc Reports no additional complaints Skin/Breast Reports system reviewed and no additional complaints, except as documented Neuro Reports no additional complaints Psych Reports no additional complaints Endo Reports no additional complaints Jamaal/Lymph Reports no additional complaints Aller/Immun Reports no additional complaints Office Procedures Cystoscopy Consent Discussed risk and benefit or proposed procedure with the patient. Information consent for procedure given to the patient. Discussed technical aspects, risks, benefits and alternatives in full. Addressed all of the patient's questions and concerns regarding the procedure. The patient demonstrated knowledge and understanding. They wish to proceed with this procedure. Preparation The patient was prepped in the usual manner. A program coordinator executive education was present and in the room. Genitalia was prepped with betadine solution in a sterile manner. Lido noah Jelly 2% was placed into the urethra and 16Fr flexible Olympus cystoscope was inserted into the meatus after adequate lubrication. Procedure Time out per protocol performed. The flexible cystoscope is passed transurethrally: The bladder was inspected in its entirety with utilization retroflexion displaying: Tumor(s): no suspicious bladder lesions visualized Trabeculation: NA Mucosal Erthema: NA Orifices: normal shape and position Urethra: normal Cystoscopy findings: prostatic urethra non obstructive, bulbous urethra WNL, no suspicious bladder lesions visualized [id number]-Lhtpefuldm DISPOSABLE SCOPE URO-G FLEXIBLE SCOPE Procedure code (CPT) selection complete Office Meds lidocaine HCl 2 % mucosal jelly in applicator Performing Provider: Radha Cannon MD Performing Location: [facility] [place] [facility] Administered by: Jose Daniel Graff LPN on 11/14/24 14:51 Dose Route Admin Location Dispensed Lot Number Expiration Date ND [employer] 10 mL intra-urethral 20 mL nitrofurantoin monohydrate/macrocrystals 100 mg capsule Performing Provider: Radha Cannon MD Performing Location: [facility] [place] [facility] Administered by: Jose Daniel Graff LPN on 11/14/24 14:51 Dose Route Admin Location Dispensed Lot Number Expiration Date NDC [employer] 100 mg PO 1 cap phenazopyridine 200 mg tablet Performing Provider: Radha Cannon MD Performing Location: [facility] [place] [facility] Administered by: Jose Daniel Graff LPN on 11/14/24 14:51 Dose Route Admin Location Dispensed Lot Number Expiration Date NDC [employer] 200 mg PO 1 tab Results AMB Urinalysis, Automated UA Leukoctes 0 Marsha/uL Last Edit by Polina Freeman on 11/14/24 17:09 UA Nitrite Negative Last Edit by Polina Freeman on 11/14/24 17:09 UA Urobilinogen 3.5 mg/dL Last Edit by Polina Freeman on 11/14/24 17:09 UA Protein 0.3 mg/dL Last Edit by Polina Freeman on 11/14/24 17:09 UA pH 5.5 Last Edit by Polina Freeman on 11/14/24 17:09 UA Blood 80 Stefan/uL Last Edit by Polina Freeman on 11/14/24 17:09 UA Specific Cecil 1.030 Last Edit by Polina Freeman on 11/14/24 17:09 UA Ketone Positive Last Edit by Polina Freeman on 11/14/24 17:09 UA Bilirubin 0 mg/dL Last Edit by Polina Freeman on 11/14/24 17:09 UA Glucose 0 mg/dL Last Edit by Polina Freeman on 11/14/24 17:09 Results Reviewed Results Reviewed: Laboratory Last Values Urine pH (Auto) 5.5 11/14/24 15:52 Specific Cecil (Auto) 1.030 11/14/24 15:52 Urine Protein (Auto) 0.3 mg/dL 11/14/24 15:52 Glucose (UA)(Auto) 0 mg/dL 11/14/24 15:52 Urine Ketones (Auto) Positive 11/14/24 15:52 Urine Blood (Auto) 80 Stefan/uL 11/14/24 15:52 Urine Nitrite (Auto) Negative 11/14/24 15:52 Urine Bilirubin (Auto) 0 mg/dL 11/14/24 15:52 Urine Urobilinogen (Auto) 3.5 mg/dL 11/14/24 15:52 Leukocyte Esterase (Auto) 0 Marsha/uL 11/14/24 15:52 Urine Cytology--Collected: 09/05/24 Location: .LAB Received: 09/06/24 Diagnosis Urine, cytology: Negative for high-grade urothelial carcinoma. COMMENT: Review of the cytology preparation demonstrates a cellular specimen composed of squames and urothelial cells. Red blood cells identified. There is no significant atypia seen. Clinical History Hematuria Material Received Urine Gross Description Received is 14 cc of cloudy yellow-gonzales fluid from which a ThinPrep slide is prepared. Date of Service: 10/31/24 Reason for Exam: R31.9 - Hematuria, unspecified EXAMINATION: CT ABDOMEN AND PELVIS WITHOUT AND WITH CONTRAST CLINICAL INFORMATION: R31.9 - Hematuria, unspecified COMPARISON: May 31, 2022 TECHNIQUE: Noncontrast CT of the abdomen and pelvis is performed followed by split bolus contrast-enhanced images using 85 mL Omnipaque 350 contrast. Postcontrast imaging is performed during the combined nephrogram and excretion phase. Sagittal and coronal reformatted images were obtained on the technologist's workstation for both the precontrast and postcontrast phases. This CT examination was performed using dose optimization techniques as appropriate, variously including the following: *Automated exposure control *Adjustment of mA and/or kV according to patient size (this includes techniques or standardized protocols for targeted exams where dose is matched to indication/reason for exam; i.e. extremities or head) *Use of iterative reconstruction technique DLP: 1540 mGy*cm FINDINGS: LUNG BASES: The visualized lung bases are unremarkable. LIVER, GALLBLADDER, AND BILIARY TREE: The liver is normal in size, shape, and attenuation. No focal hepatic lesion or biliary ductal dilatation is present. The gallbladder is unremarkable with no evidence of radiopaque gallstones, gallbladder wall thickening, or obvious pericholecystic inflammatory changes. PANCREAS: Unremarkable. SPLEEN: Unremarkable. ADRENAL GLANDS: Unremarkable. KIDNEYS AND URETERS: Punctate 1 mm calcification is present in the lower pole right kidney likely representing a small stone. There is no hydronephrosis. There is symmetric concentration and excretion of contrast from both kidneys. BLADDER: It is mostly decompressed but grossly unremarkable. GASTROINTESTINAL TRACT: The small and large bowel are unremarkable. The appendix is unremarkable. ABDOMINAL WALL: No significant hernia is appreciated. LYMPH NODES: Shotty right inguinal nodes are present. Likely reactive or hyperplastic. VASCULAR: Unremarkable. PELVIC VISCERA: Unremarkable. OSSEUS STRUCTURES: Unremarkable. IMPRESSION: Nonobstructing 1 mm stone is present in the lower pole right kidney. Otherwise, unremarkable urogram. Assessment & Plan Assessment & Plan (1) Proteinuria: Code(s): R80.9 - Proteinuria, unspecified Category: Medical (2) Microscopic hematuria: Code(s): R31.29 - Other microscopic hematuria Category: Medical (3) Nicotine dependence: Code(s): F17.200 - Nicotine dependence, unspecified, uncomplicated Category: Medical (4) Kidney stone: Code(s): N20.0 - Calculus of kidney Category: Medical Plan Plan 1. Microscopic Hematuria -REID negative for malignancy at this time 2. Possible Nephrolithiasis - Monitor for symptoms of renal colic or stone passage. - Consider follow-up imaging if symptoms develop. 3. Nicotine Use Orders: Orders AMB Cystoscopy 11/14/24 R31.9 - Hematuria, unspecified AMB Urinalysis Automated 11/14/24 R31.29 - Other microscopic hematuria, R80.9 - Proteinuria, unspecified, R31.9 - Hematuria, unspecified Referrals Nephrology Referral R80.9 - Proteinuria, unspecified, R31.29 - Other microscopic hematuria Patient Instructions: The patient had an opportunity to ask questions regarding treatment plan. The patient expressed understanding and agreement with the above treatment plan. The patient is aware they should contact our office by phone for worsening of their current condition or the appearance of new symptoms. Compliance is encouraged with any medications and followup testing that is ordered. It is a privilege to be allowed the opportunity to participate in the urologic care of your patient. If you have any questions or concerns regarding treatment for the above conditions please do not hesitate to contact me. The office telephone contact is [phone]. This note is constructed in part using voice recognition software. While every effort has been made to ensure accuracy ware finisher errors may have been included. Yours sincerely, Radha Cannon MD Scribe Plan - Not visible on output: Patient was informed and verbally consented to the use of an ambient scribe for clinic note documentation during this visit. Coding Level of Care Code Est Pt Level 4 (28314) Diagnoses Proteinuria R80.9 Microscopic hematuria R31.29 Nicotine dependence F17.200 Kidney stone N20.0 CPT Codes Cystoscopy - CPT: 39614-Scvaifbwrm ([id number])
--- OUTSIDE RECORDS SUMMARY | 2024-11-14 18:44 | XMS_ITS | Patient Health Record ---
Author Organization [facility] Address [address] [place] [address] Care Team Providers Care Associate Financial Representative Name Role Phone Michelel Gonzalez Primary Care Provider UnavailRomario Downing Unavailable [phone] Allergies No Known Allergies Reason For Referral [...] many cigarettes a day do you smoke? - Alcohol Screen Question Answer Notes Did you [...] Problem Status W/U Status Risk Notes Problem [id number] Rectal bleeding (K62.5) Active confirmed Plan Of Treatment Future Test Test Name Order Date COLONOSCOPY 12/27/2022 Insurance Providers Payer Name Payer Address Payer Phone Subscriber Number Group Number Insured Name Patient Relationship to Insured Coverage Start Date Coverage End Date MEDICAID OF [employer] [address] [place] [phone] [id number] ROSALINA DELVALLE Self - patient is the insured Medical (General) History Medical History History ICD Code Denies IA,DM,CVA,Lung disease,renal dise ase Shingles Microscopic hematuria for wh ich he reports he will be seeing a urologist as scheduled by his PCP Surgical History Surgery Date(Month/Year) Hemorrhoidectomy--Dr. Messina 09/01/2022
== END 2024-11-14 15:46 | disposition home or self-care (01) ==
LOC: HO.HUSH 14:20
PROVIDERS: PCP Internal Medicine; Visit Provider Urology
DX: R31.29 Other microscopic hematuria (principal); R80.9 Proteinuria, unspecified; R31.9 Hematuria, unspecified
CPT/HCPCS: 52000

== ENCOUNTER → 2024-11-14 14:20 | Outpatient (BNVA) | payer BC, SELFPAY | PROVIDERS: PCP Internal Medicine; Visit Provider Urology | DX: N20.0 Calculus of kidney (principal); R31.29 Other microscopic hematuria; R80.9 Proteinuria, unspecified; R31.9 Hematuria, unspecified | CPT/HCPCS: 52000; 81003 ==

== ENCOUNTER 2025-01-03 13:09 | Outpatient (REF) | payer BC, SELFPAY ==
[2025-01-03 14:38] LABS: Anion Gap 13 (12-20); Blood Urea Nitrogen 11 mg/dL (9-16); Calcium 9.8 mg/dL (8.4-10.2); Carbon Dioxide 25 mmol/L (22-29); Chloride 108 mmol/L (96-108); Estimated Glomerular Filt Rate > 60; Potassium 3.8 mmol/L (3.3-5.1); Sodium 142 mmol/L (135-145)
[2025-01-03 14:51] LABS: Appearance Urine Clear; Glucose Urine UA Negative (Negative); PH 5.5 (5.0-9.0); Specific Gravity - Urine 1.015 (1.005-1.025); UMIC TRIGGER UA YES
[2025-01-03 15:30] LABS: Total Protein Urine Random < 7 mg/dL (<12)
== END 2025-01-03 13:10 | disposition home or self-care (01) ==
LOC: HO.LAB 13:09
PROVIDERS: PCP Internal Medicine; Referring Provider Urology; Visit Provider Internal Medicine Hypertension Specialist
DX: N20.0 Calculus of kidney (principal); R31.29 Other microscopic hematuria
CPT/HCPCS: 36415; 80048; 81001; 82570; 84156

== ENCOUNTER 2025-01-03 13:09 | Outpatient (AMB) | payer BC, SELFPAY ==
[2025-01-03 13:15] VITALS: BP 118/66; PULSE 80; O2SAT 99; BMI 27.9
--- NOTE | 2025-01-03 13:15 | HO.NEPHOV ---
Vital Signs 01/03/25 13:15 Height 6 ft Weight 206 lb BMI 27.9 BP 118/66 Blood Pressure Location Lt brachial Position Sitting Pulse 80 Pulse Source Pulse Oximeter Pulse Oximetry (%) 99 Oxygen Delivery Method Room Air Intake Visit Reasons: INP: Proteinuria, Other microscopic hematuria Freight Elevator Erector Required: No Accompanied by: Spouse Allergies No Known Allergies Allergy (Verified 01/03/25 13:17) HPI Comments Details: The patient is a 39-year-old male referred for microscopic hematuria and question proteinuria. . He has a history of trace hematuria noted during physical examinations over several years, with recent findings of proteinuria. An ultrasound revealed a 1 mm calcification in the lower pole of the kidney, identified as a small renal stone. Seen by Urology and underwent cystoscopy which was unremarkable. The patient denies any significant medical history of hypertension or diabetes and is not on any prescription medications. He has a surgical history of hernia and hemorrhoid removal approximately two years ago. The patient reports frequent urination but denies visible hematuria, blood in stools, or leg swelling. He experiences occasional sharp pains that last a few seconds to a minute, occurring sporadically over the past year. The patient has a smoking history of approximately 10-12 years, consuming about half a pack per day, and is attempting to quit. [facility] Medical History Thrombocytopenia Hemorrhoids Surgical History History of hemorrhoidectomy (09/01/22) Surgical history unknown Family History Paternal Grandfather Esophageal cancer Social History Household Members: Significant Other and Children Patient Tobacco Use Status: Current everyday Tobacco user Tobacco use type: Cigarette Cigarette Packs Per Day: 0.5 Cigarettes Per Day: 10.0 Second Hand Smoke Exposure: No Substance Use Type: Marijuana service: No Current occupational status: employed Review of Systems Const Denies fever(s) and Denies weight loss Card Denies chest pain Resp Denies cough and Denies hemoptysis GI Denies abdominal pain, Denies diarrhea and Denies nausea Musc Denies back pain Neuro Denies focal weakness Physical Exam Vital Signs: Last Vital Signs Pulse 80 01/03/25 13:15 BP 118/66 01/03/25 13:15 Pulse Ox 99 01/03/25 13:15 Oxygen Delivery Method Room Air 01/03/25 13:15 BMI result Body Mass Index 27.9 Comfortable Neck supple no JVD. Lungs entry equal no rales. Heart S1-S2 heard no gallop or rub. Abdomen soft nontender. Neuro alert awake oriented. No asterixis. Extremities no edema. Results Reviewed Nephrology Results: Hgb, (14.0-18.0) 13.0 g/dl L 10/18/23 WBC, (4.8-10.8) 5.2 X10*3/uL 10/18/23 Plt Count, (160-400) 207 X10*3/uL 10/18/23 Sodium, (135-145) 140 mmol/L 10/18/23 Potassium, (3.3-5.1) 4.2 mmol/L 10/18/23 Chloride, (96-108) 106 mmol/L 10/18/23 Carbon Dioxide, (22-29) 29 mmol/L 10/18/23 BUN, (9-16) 16 mg/dL 09/05/24 Creatinine, (0.5-1.4) 1.07 mg/dL 09/05/24 Calcium, (8.4-10.2) 9.2 mg/dL 10/18/23 Assessment & Plan Assessment & Plan (1) Kidney stone: Code(s): N20.0 - Calculus of kidney Category: Medical (2) Microscopic hematuria: Code(s): R31.29 - Other microscopic hematuria Category: Medical Plan 1. Nephrolithiasis 1 mm. Asymptomatic. No evidence of obstruction. - Recommend increased fluid intake, reduced salt consumption, and consumption of lemonade to prevent further stone formation. 2. Hematuria Most likely related to underlying nephrolithiasis. However we will rule out other causes. Workup ordered 3. Proteinuria Trace proteinuria noted on dipstick - Plan to conduct urine tests to quantify proteinuria and proceed with workup as indicated At present renal function is normal. Further workup will be based on the outcome of the above baseline investigations Orders: Orders Basic Metabolic Panel Today N20.0 - Calculus of kidney Creatinine Urine Today N20.0 - Calculus of kidney UA and rflx microscopic Today N20.0 - Calculus of kidney Total Protein Urine Random Today N20.0 - Calculus of kidney Coding Level of Care Code New Pt Level 4 (95290) Diagnoses Kidney stone N20.0 Microscopic hematuria R31.29
--- OUTSIDE RECORDS SUMMARY | 2025-01-03 19:22 | XMS_ITS | Data Portability ---
Author Organization [place] - [facility] [address] Address [address] [place] [address] Assessment No assessment recorded. Plan of Treatment [...] Diagnosis SNOMED-CT Code Diagnosis ICD10 Code Diagnosis IMO Codes Diagnosis Note [id number] [facility] [address] [address] [facility] [address] [place] [address] 05/15/2017 16:59:01 05/15/2017 17:45:57 [id number] [address] [address] [place] [address] 05/20/2017 12:53:03 05/20/2017 13:39:46 [id number] [address] [facility] [place] [address] 04/10/2019 10:40:08 04/10/2019 11:13:59 [id number] 20994[facility] [address] [place] [address] 06/02/2019 10:10:00 06/02/2019 10:52:30 [id number] Wilma Barajas MD [address] [place] [address] 07/06/2022 08:50:02 07/06/2022 10:02:05 Foreclosure Field Inspector license medical examination [id number] Z02.4 Physical examination 588 0005 Z02.4 Health Concerns Section Related Observation LastModified by Organization Detai ls LastModified Time None Recorded Concern Status LastModified by Organization Details LastModified Time None Recorded Advance Directives Directive None Recorded Payers Insurance Date Sequence Insurance Name Policy Number Policy Arita Covered Member ID Arita Member ID Guarantor Name 07/06/2022 1 [facility] (O) [id number] Errol Bailey [id number] Errol Bailey 07/06/2022 OC-PAY AT TIME OF SERVICE 2022 Errol Bailey PAY AT TIME OF SERVICE 20 PAY AT TIME OF SERVICE 20 Errol Bailey 07/06/2022 PAY AT TOS Errol Bailey PAY AT TIME OF SERVICE 20 PAY AT TIME OF SERVICE 20 Errol Bailey
== END 2025-01-03 13:29 | disposition home or self-care (01) ==
LOC: HO.HKA 13:10
PROVIDERS: PCP Internal Medicine; Referring Provider Urology; Visit Provider Internal Medicine Hypertension Specialist
DX: N20.0 Calculus of kidney (principal); R31.29 Other microscopic hematuria
CPT/HCPCS: 99204

== ENCOUNTER 2025-01-23 15:04 | Outpatient (AMB) | payer BC, SELFPAY ==
[2025-01-23 15:06] VITALS: BP 118/70; PULSE 80; O2SAT 98; BMI 28.5
--- NOTE | 2025-01-23 15:06 | HO.NEPHOV_ITS ---
Vital Signs 01/23/25 15:06 Height 6 ft Weight 210 lb BMI 28.5 BP 118/70 Blood Pressure Location Lt brachial Position Sitting Pulse 80 Pulse Source Pulse Oximeter Pulse Oximetry (%) 98 Oxygen Delivery Method Room Air Intake Visit Reasons: 3wk f/u Medical Device Sales Required: No Accompanied by: Self / Same As Patient Allergies No Known Allergies Allergy (Verified 01/23/25 15:07) HPI Comments Details: The patient is a 39-year-old male referred for microscopic hematuria and qu estion proteinuria. . He has a history of trace hematuria noted during physical examinations over several years, with recent findings of proteinuria. An ultrasound revealed a 1 mm calcification in the lower pole of the kidney, identified as a small renal stone. Seen by Urology and underwent cystoscopy which was unremarkable. The patient denies any significant medical history of hypertension or diabetes and is not on any prescription medications. He has a surgical history of hernia and hemorrhoid removal approximately two years ago. The patient reports frequent urination but denies visible hematuria, blood in stools, or leg swelling. He experiences occasional sharp pains that last a few seconds to a minute, occurring sporadically over the past year. The patient has a smoking history of approximately 10-12 years, consuming about half a pack per day, and is attempting to quit. 01/23/25 Here for follow up. No gross hematuria. No specific complaint [facility] Medical History Thrombocytopenia Hemorrhoids Surgical History History of hemorrhoidectomy (09/01/22) Surgical history unknown Family History Paternal Grandfather Esophageal cancer Social History Household Members: Significant Other and Children Patient Tobacco Use Status: Current everyday Tobacco user Tobacco use type: Cigarette Cigarette Packs Per Day: 0.5 Cigarettes Per Day: 10.0 Second Hand Smoke Exposure: No Substance Use Type: Marijuana service: No Current occupational status: employed Physical Exam Vital Signs: Last Vital Signs Pulse 80 01/23/25 15:06 BP 118/70 01/23/25 15:06 Pulse Ox 98 01/23/25 15:06 Oxygen Delivery Method Room Air 01/23/25 15:06 BMI result Body Mass Index 28.5 Comfortable Neck supple no JVD. Lungs entry equal no rales. Heart S1-S2 heard no gallop or rub. Abdomen soft nontender. Neuro alert awake oriented. No asterixis. Extremities no edema. Results Reviewed Nephrology Results: Hgb, (14.0-18.0) 13.0 g/dl L 10/18/23 WBC, (4.8-10.8) 5.2 X10*3/uL 10/18/23 Plt Count, (160-400) 207 X10*3/uL 10/18/23 Sodium, (135-145) 142 mmol/L 01/03/25 Potassium, (3.3-5.1) 3.8 mmol/L 01/03/25 Chloride, (96-108) 108 mmol/L 01/03/25 Carbon Dioxide, (22-29) 25 mmol/L 01/03/25 BUN, (9-16) 11 mg/dL 01/03/25 Creatinine, (0.5-1.4) 1.03 mg/dL 01/03/25 Calcium, (8.4-10.2) 9.8 mg/dL Δ 01/03/25 Urine Protein, (Neg-Trace) Negative mg/dL 01/03/25 Urine Creatinine 129.77 mg/dL 01/03/25 Assessment & Plan Assessment & Plan (1) Kidney stone: Code(s): N20.0 - Calculus of kidney Category: Medical (2) Microscopic hematuria: Code(s): R31.29 - Other microscopic hematuria Category: Medical Plan 1. Nephrolithiasis 1 mm. Asymptomatic. No evidence of obstruction. - Recommend increased fluid intake, reduced salt consumption, and consumption of lemonade to prevent further stone formation. 2. Hematuria Most likely related to underlying nephrolithiasis. No significant Proteinuria based on urine protein creatinine ratio Trace proteinuria noted on dipstick has resolved No further testing is needed At present renal function is normal. Coding Level of Care Code Est Pt Level 3 (12368) Diagnoses Kidney stone N20.0 Microscopic hematuria R31.29
== END 2025-01-23 15:14 | disposition home or self-care (01) ==
LOC: HO.HKA 15:05
PROVIDERS: PCP Internal Medicine; Visit Provider Internal Medicine Hypertension Specialist
DX: N20.0 Calculus of kidney (principal); R31.29 Other microscopic hematuria
CPT/HCPCS: 99213